=== PATIENT | male | born 1950 | race Caucasian/White ===

== ENCOUNTER → 2023-06-30 | Outpatient (REF) | payer MEDICARE, MEDICAID | LOC: M SFHCDERM 17:51 | PROVIDERS: ATTEND Nurse Practitioner Family | DX: C44.212 Basal cell carcinoma of skin of right ear and external auricular canal (principal); L57.0 Actinic keratosis ==

== ENCOUNTER 2025-06-19 06:22 | Day surgery (SDC) | payer MEDICARE, MEDICAID ==
[~2025-06-19] VITALS: Ht 152.4 cm; Wt 59.7 kg
[~2025-06-19 06:22] MED LIST: ATOR1TAB19 PO; DICL50TAB PO; DONE10TA90 PO; ECOT81TA5 PO; LOPE1CAP5 PO; MEMA1TAB3 PO; PHENYLEPHRINE 10% OPHTH SOL 5ML OS PRN; RAMI2.5C42 PO; TAMS1CAP17 PO
[2025-06-19] MEDS ORDERED: MIDAZOLAM INJ 2 MG/2 ML VIAL As Ordered ONE (07:06)
[2025-06-19] MEDS: OFLOXACIN 0.3 % (OCUFLOX) OPTH SOL 5ML OS ONE (07:30)
[2025-06-19] MEDS: LIDOCAINE 3.5% 1 ML OPHTH TOPICAL GEL OU ONE (07:30)
[2025-06-19] MEDS: PHENYLEPHRINE 2.5% OPHTH SOL 2ML OS SCH (07:35)
[2025-06-19] MEDS: TROPICAMIDE 1% OPHTH SOLN 15ML OS SCH (07:35)
[2025-06-19] MEDS: CYCLOPENTOLATE 1% OPHTH SOLN 2 ML BTL OS SCH (07:35)
[2025-06-19] MEDS: LIDOCAINE 1% SDV 5 ML VIAL As Ordered ONE (08:44)
[2025-06-19] MEDS: BSS IRRIG/VANCO(10MG)/TOBRA(5MG)/EPINEPH(1:1000-0.5CC)500ML BAG-ORONLY As Ordered ONE (08:45)
[2025-06-19] MEDS: CEFUROXIME 1 MG/0.1 ML INTRACAMERAL INJ As Ordered ONE (08:46)
[2025-06-19 08:55] VITALS: BP 105/61; TEMP 97.2; O2SAT 95
== END 2025-06-19 09:12 | disposition home or self-care (01) ==
LOC: M SDC 06:22
PROVIDERS: ATTEND Ophthalmology
DX: E11.36 Type 2 diabetes mellitus with diabetic cataract (principal); H25.011 Cortical age-related cataract, right eye; G51.0 Bell's palsy; Z79.899 Other long term (current) drug therapy; Z79.82 Long term (current) use of aspirin; Z86.011 Personal history of benign neoplasm of the brain; Z92.3 Personal history of irradiation
CPT/HCPCS: 66984; J0697; J2250; J3010; V2632

== ENCOUNTER 2025-06-26 06:18 | Day surgery (SDC) | payer MEDICARE, MEDICAID ==
[~2025-06-26] VITALS: Ht 152.4 cm; Wt 59.1 kg
[~2025-06-26 06:18] MED LIST changes: +PHENYLEPHRINE 10% OPHTH SOL 5ML OD PRN; -PHENYLEPHRINE 10% OPHTH SOL 5ML OS PRN
[2025-06-26] MEDS ORDERED: MIDAZOLAM INJ 2 MG/2 ML VIAL As Ordered ONE (06:21)
[2025-06-26] MEDS: LIDOCAINE 3.5% 1 ML OPHTH TOPICAL GEL OU ONE (07:25)
[2025-06-26] MEDS: OFLOXACIN 0.3 % (OCUFLOX) OPTH SOL 5ML OD ONE (07:25)
[2025-06-26] MEDS: TROPICAMIDE 1% OPHTH SOLN 15ML OD SCH (07:26)
[2025-06-26] MEDS: CYCLOPENTOLATE 1% OPHTH SOLN 2 ML BTL OD SCH (07:26)
[2025-06-26] MEDS: PHENYLEPHRINE 2.5% OPHTH SOL 2ML OD SCH (07:26)
[2025-06-26] MEDS ORDERED: ACET-907 PO (07:29)
[2025-06-26] MEDS: BSS IRRIG/VANCO(10MG)/TOBRA(5MG)/EPINEPH(1:1000-0.5CC)500ML BAG-ORONLY As Ordered ONE (08:09)
[2025-06-26] MEDS: LIDOCAINE 1% SDV 5 ML VIAL As Ordered ONE (08:09)
[2025-06-26] MEDS: CEFUROXIME 1 MG/0.1 ML INTRACAMERAL INJ As Ordered ONE (08:09)
[2025-06-26 08:22] VITALS: TEMP 97.9; O2SAT 96
[2025-06-26 08:37] VITALS: BP 110/60
== END 2025-06-26 08:40 | disposition home or self-care (01) ==
LOC: M SDC 06:18
PROVIDERS: ATTEND Ophthalmology
DX: H25.11 Age-related nuclear cataract, right eye (principal); E11.9 Type 2 diabetes mellitus without complications; F03.90 Unspecified dementia, unspecified severity, without behavioral disturbance, psychotic disturbance, mood disturbance, and anxiety; Z92.3 Personal history of irradiation; F17.210 Nicotine dependence, cigarettes, uncomplicated; Z79.82 Long term (current) use of aspirin; Z79.899 Other long term (current) drug therapy
CPT/HCPCS: 66984; J0697; J2250; J3010; V2632